=== PATIENT | male | born 1990 | race African-American/Black ===

== ENCOUNTER 2016-11-30 20:04 | Emergency (ER) | payer OTHER ==
[~2016-11-30] VITALS: Ht 182.9 cm; Wt 108.0 kg
[2016-11-30 20:09] VITALS: BP 153/74
[2016-11-30] MEDS ORDERED: ERYTHROMYCIN E3.5 G2 OPHTHALMIC (20:21)
== END 2016-11-30 20:59 | disposition home or self-care (01) ==
LOC: ER 20:04
DX: S05.02XA Injury of conjunctiva and corneal abrasion without foreign body, left eye, initial encounter (principal); F17.210 Nicotine dependence, cigarettes, uncomplicated; F10.99 Alcohol use, unspecified with unspecified alcohol-induced disorder; T75.09XA Other effects of lightning, initial encounter; Y93.89 Activity, other specified; Y92.89 Other specified places as the place of occurrence of the external cause; Y99.8 Other external cause status

== ENCOUNTER 2017-09-07 10:07 | Emergency (ER) | payer OTHER ==
[~2017-09-07] VITALS: Ht 182.9 cm; Wt 108.9 kg
[~2017-09-07 10:07] MED LIST: ERYTHROMYCIN E3.5 G2 OPHTHALMIC
[2017-09-07 10:17] VITALS: BP 128/76
[2017-09-07] MEDS ORDERED: MOBIC15 MG PO (10:32)
[2017-09-07] MEDS ORDERED: LIORESAL 10 MG10 MG PO (10:32)
== END 2017-09-07 10:56 | disposition home or self-care (01) ==
LOC: ER 10:07
DX: F07.81 Postconcussional syndrome (principal); M79.602 Pain in left arm; M54.9 Dorsalgia, unspecified; M25.561 Pain in right knee; V89.0XXA Person injured in unspecified motor-vehicle accident, nontraffic, initial encounter; Y93.89 Activity, other specified; Y92.89 Other specified places as the place of occurrence of the external cause; Y99.8 Other external cause status